=== PATIENT | female | born 1970 | race Asian ===

== ENCOUNTER 2020-07-25 22:09 | Emergency (ER) | payer OTHER ==
[~2020-07-25] VITALS: Ht 157.5 cm; Wt 49.9 kg
--- NOTE | 2020-07-25 22:20 | NUR ---
PT BIBSELF C/O BUMP ON HEAD S/P SYNCOPAL EPISODE EARLIER TODAY. PT DENIES DIZZINESS, HEADACHE, VISUAL DISTURBANCES, NAUSEA, VOMITTING. PT AAOX4. RESPIRATIONS EVEN AND UNLABORED. SKIN WARM AND INTACT. VITAL SIGNS STABLE. AMBULATORY WITH STEADY GAIT. NO ACUTE DISTRESS NOTED AT THIS TIME. PLACED ON MONITOR, WILL CONTINUE TO MONITOR
--- NOTE | 2020-07-25 22:24 | NUR ---
URINE COLLECTED AND SENT TO LAB
--- NOTE | 2020-07-25 22:55 | NUR ---
IV INITAITED RAC 20G. LABS DRAWN FROM SITE. [employer] SPECIALIST AT BEDSIDE FOR COLLECTION. IV INTACT AND PATENT, PLACED ON SALINE LOCK
[2020-07-25] MEDS ORDERED: IV NS 0.9% 1,000 ML BAG IV ONE (23:00)
[2020-07-25 23:09] LABS: BASOPHILS # (AUTO) 0.1 /CMM (0.0-0.2); BASOPHILS % (AUTO) 0.8 % (0.0-2.0); EOSINOPHILS % (AUTO) 0.3 % (0.0-6.0); HEMATOCRIT 43 % (33-45); HEMOGLOBIN 13.8 g/dL (11.5-14.8); LYMPHOCYTES # (AUTO) 1.1 /CMM (0.8-4.8); LYMPHOCYTES % (AUTO) 9.1 % (20.0-44.0); MEAN CORPUSCULAR HGB CONC 32 g/dl (31.0-36.0); MEAN CORPUSCULAR VOLUME 97 fL (82-100); MONOCYTES # (AUTO) 0.3 /CMM (0.1-1.30); MONOCYTES % (AUTO) 2.6 % (2.0-12.0); NEUTROPHILS # (AUTO) 10.5 /CMM (1.8-8.9); NEUTROPHILS % (AUTO) 87.2 % (43.0-81.0); PLATELET COUNT (AUTO) 278 /CMM (150-450); RED BLOOD CELL COUNT(AUTO) 4.41 MIL/uL (4.0-5.2)
--- NOTE | 2020-07-25 23:20 | NUR ---
BROUGHT BY RADIOLOGY TO CT
[2020-07-25 23:30] LABS: ALBUMIN 4.7 g/dL (3.4-5.0); BILIRUBIN,DIRECT 0.1 mg/dL (0.0-0.2); BILIRUBIN,TOTAL 0.3 mg/dL (0.2-1.0); CALCIUM, SERUM 9.4 mg/dL (8.5-10.1); CREATININE 0.7 mg/dL (0.6-1.3); POTASSIUM 3.7 mmol/L (3.5-5.1); TOTAL PROTEIN, SERUM 8.4 g/dL (6.4-8.2)
--- NOTE | 2020-07-26 00:36 | NUR ---
Patient discharged to home in stable condition. Written and verbal after care instructions given. Patient verbalizes understanding of instruction.IV removed. Catheter intact and site benign. Pressure and 4x4 applied to site. No bleeding noted.Pt ambulatory with a steady gait
[2020-07-26 00:37] VITALS: BP 127/84
== END 2020-07-26 00:37 | disposition home or self-care (01) ==
LOC: ER 22:19
DX: S00.03XA Contusion of scalp, initial encounter (principal); R55 Syncope and collapse; R00.0 Tachycardia, unspecified; E03.9 Hypothyroidism, unspecified; W18.09XA Striking against other object with subsequent fall, initial encounter; Y93.89 Activity, other specified; Y92.89 Other specified places as the place of occurrence of the external cause; Y99.8 Other external cause status
CPT/HCPCS: 36415; 70450; 71045; 80048; 80076; 84703; 85025; 93005; 96360; 99285; J7030